=== PATIENT | male | born 1965 | race Caucasian/White ===

== ENCOUNTER 2016-11-19 02:40 | Emergency (ER) | payer OTHER, MEDICARE ==
[~2016-11-19 02:40] MED LIST: ALPRAZOLAM2 MG PO; CO-Q-10 100 MG-1 SGL PO; DOLOPHINE10 MG PO; MULTIVITAMIN1 TAB PO; OXYCODONE5 MG PO; VITAB121000 PO
[2016-11-19 03:02] VITALS: BP 149/76
--- NOTE | 2016-11-19 03:39 | ED UPPER/LOWER EXTREMITY COMPL ---
History of Present Illness General Chief Complaint: Lower Extremity Problems Stated Complaint: "PER PT RT FEMUR INFECTION?" Source: patient, old records Exam Limitations: no limitations Vital Signs & Intake/Output Vital Signs & Intake/Output Vital Signs Date Time Temp Pulse Resp B/P B/P Pulse O2 O2 Flow FiO2 Mean Ox Delivery Rate 11/19 0302 98.9 85 20 149/76 96 Allergies Coded Allergies: NO KNOWN ALLERGIES (07/01/15) Reconcile Medications Alprazolam 2 MG TAB 1 TAB PO TID ANXIETY (Reported) Coenzyme Q10/Vitamin E (Co-Q-10 100 MG-1 Iu) (Unknown Strength) SGL (Unknown Dose) PO DAILY SUPPLEMENT (Reported) Cyanocobalamin (Vitamin B-12) (Unknown Strength) TAB (Unknown Dose) PO DAILY SUPPLEMENT (Reported) Methadone Hydrochloride (Dolophine) 10 MG TAB 40 MG PO DAILY PAIN (Reported) Multivitamin (Multiple Vitamins) 1 TAB TAB 1 TAB PO DAILY SUPPLEMENT ( Reported) Oxycodone Hydrochloride (Oxycodone) 5 MG TAB 40 MG PO DAILY PAIN (Reported) Triage Note: PER PT TOLD BY YISSEL HAS A DISPLACED RT FEMUR X 10 DAYS, NOW FEEL LIKE ITS INFECTED DRINKING ALOT OF WATER Triage Nurses Notes Reviewed? yes Onset: Gradual Duration: week(s):, constant, continues in ED, getting worse Severity: severe Method of Injury: no recent trauma HPI: Patient presents for evaluation of right femur discomfort. Patient states that he is experiences discomfort for a month now. He recently had a right femur x- ray that showed no displacement" of the femur. He is status post right knee replacement about 5 years ago. He states that from time to time he feels warm and thinks he may have even had a tactile fever. In addition he has redness from his leg traveling up his trunk up into his neck. He has an appointment with an renewals specialist on November 21 but felt unable to wait until then. Past History Travel History Traveled to [place] past 21 day No Medical History Any Pertinent Medical History? see below for history Neurological: NONE EENT: NONE Cardiovascular: NONE Respiratory: NONE Gastrointestinal: NONE Hepatic: NONE Renal: NONE Musculoskeletal: CHRONIC BACK PAIN Psychiatric: anxiety Endocrine: NONE Blood Disorders: NONE Surgical History Surgical History: knee replacement (BILATERAL) Psychosocial History What is your primary language Faroese Tobacco Use: Never used Family History Hx Contributory? No Review of Systems Review of Systems Constitutional: Reports: no symptoms. EENTM: Reports: no symptoms. Respiratory: Reports: no symptoms. Cardiovascular: Reports: no symptoms. Gastrointestinal/Abdominal: Reports: no symptoms. Genitourinary: Reports: no symptoms. Musculoskeletal: Reports: see HPI. Skin: Reports: no symptoms. Neurological/Psychological: Reports: no symptoms. Hematologic/Endocrine: Reports: no symptoms. Immunological: Reports: no symptoms. All Other Systems: Reviewed and Negative Physical Exam Physical Exam General Appearance: see below Comments: Gen.: Well-nourished, well-developed, no acute respiratory distress. Head: Normocephalic, atraumatic. Eyes: Normal inspection bilaterally Ears: Normal inspection bilaterally Nose: Normal inspection, nasal cannula in place Throat/mouth : Moist mucosa Neck: Supple, full range of motion, no goiter Heart: Regular rate and rhythm Lungs: Quiet respirations Back: Normal range of motion Extremities: Right lower extremity: No erythema or warmth or soft tissue swelling, well-healed right knee surgical scar, right lower extremity is neurovascularly intact distally. Neurologic: Cranial nerves grossly intact, speech is clear Skin: warm and dry Psychiatric: Calm, cooperative, no apparent delusions or hallucinations Progress Differential Diagnosis: dislocation, fracture, sprain Plan of Care: Orders Procedure Date/time Status [facility] SED RATE 11/19 033 Complete CBC WITHOUT DIFFERENTIAL 11/19 033 Complete Laboratory Tests 11/19/16 0340: CBC w Diff NO MAN DIFF REQ, RBC 4.53 L, MCV 93.4, MCH 31.7 H, RDW 13.3, MPV 8.5, Gran % 68.5, Lymphocytes % 24.6, Monocytes % 6.4, Eosinophils % 0.1, Basophils % 0.4, Absolute Granulocytes 4.6, Absolute Lymphocytes 1.6, Absolute Monocytes 0.4, Absolute Eosinophils 0, Absolute Basophils 0, PUBS MCHC 33.9, ESR Westergren 10 Radiology Impression: prior right femur x-ray reviewed, the impression is as follows: IMPRESSION: Moderately severe degenerative changes of the right hip with lateral subluxation. No evidence of acute fracture. Departure Departure Disposition: HOME OR SELF CARE Condition: Stable Clinical Impression Primary Impression: Arthritis of right hip Referrals: NAVARRO LICONA APRN (PCP/Family) Additional Instructions: Follow-up with your renewals specialist as scheduled November 21. Diclofenac as prescribed for pain. Decrease activity until you see the orthopedic doctor in follow-up. Notify your primary care doctor of this emergency department visit and treatment plan. Return if any concerns or sudden worsening. Thank you for choosing the [facility] Emergency Department for your care. It was a pleasure to serve you today. Julio Woods M.D. [facility] Departure Forms: Customer Survey General Discharge Information Prescriptions: Current Visit Scripts Diclofenac Sodium 1 TAB PO BID PRN PAIN #14 TAB
[2016-11-19 03:48] LABS: ABSOLUTE BASOPHIL COUNT 0 /CUMM (0.0-0.2); ABSOLUTE EOSINOPHIL COUNT 0 /CUMM (0.0-0.7); ABSOLUTE GRANULOCYTE CT 4.6 /CUMM (1.4-6.5); ABSOLUTE LYMPH COUNT 1.6 /CUMM (1.2-3.4); ABSOLUTE MONOCYTE COUNT 0.4 /CUMM (0.10-0.60); BASOPHIL % 0.4 % (0.0-2.0); EOSINOPHIL % 0.1 % (0-5); GRANULOCYTE % 68.5 % (42.2-75.2); HEMATOCRIT 42.3 % (42-52); MEAN CORPUSCULAR HGB 31.7 PG (27.0-31.0); MEAN CORPUSCULAR HGB CONC 33.9 G/DL (33.0-37.0); MEAN CORPUSCULAR VOLUME 93.4 FL (80.0-94.0); MEAN PLATELET VOLUME 8.5 FL (7.4-10.4); PLATELET COUNT 182 /CUMM (130-400); RBC DISTRIBUTION WIDTH 13.3 % (11.5-14.5); RED BLOOD CELL CT 4.53 /CUMM (4.70-6.10); WHITE BLOOD CELL COUNT 6.7 /CUMM (4.8-10.8)
[2016-11-19] MEDS ORDERED: DICLOFENAC SODI75 M2 PO (04:59)
== END 2016-11-19 05:09 ==
LOC: ERH 02:40
PROVIDERS: Emergency Medicine
DX: M16.11 Unilateral primary osteoarthritis, right hip (principal)

== ENCOUNTER 2017-06-28 03:45 | Inpatient (IN) | payer OTHER, MEDICARE ==
[~2017-06-28] VITALS: Ht 172.7 cm; Wt 117.0 kg
[~2017-06-28 03:45] MED LIST changes: +ALPRAZOLAM2 M2 PO; -ALPRAZOLAM2 MG PO; +CLONAZEPAM2 M2 PO; +DICLOFENAC SODI75 M2 PO; +MULTIVITAMINS1 EAC9 PO; +VITAMIN D1000 UNIT PO
--- NOTE | 2017-06-28 11:55 | Admission Core Measures ---
Acute Coronary Syndrome (CM) ACS Core Measures Acute Coronary Syndrome Diagnosis No Congestive Heart Failure (NEW) CHF Core Measures Congestive Heart Failure Diagnosis No Cerebrovascular Accident (NEW) CVA Core Measures CVA/TIA Diagnosis No Venous Thromboembolism VTE Core Ravindra (View Protocol) VTE Risk Factors Surgery No Mechanical VTE Prophylaxis d/t N/A MechProphylax Ordered No VTE Pharm Prophylaxis d/t NA PharmProphylax ordered Problem List As ranked by this Provider includes Assessment & Plan 1. Unilateral primary osteoarthritis, right hip HOME MEDS Home Med List Alprazolam 2 MG TABLET 1 TAB PO BID ANXIETY (Reported) Cholecalciferol (Vitamin D3) (Vitamin D) (Unknown Strength) TABLET (Unknown Dose) PO DAILY SUPPLEMENT (Reported) Multiple Vitamin (Multivitamins) 1 EACH TABLET 1 TAB PO DAILY SUPPLEMENT ( Reported)
--- NOTE | 2017-06-28 12:02 | Surgical Discharge Summary ---
Visit Information Visit Dates Admission Date: 06/28/17 Discharge Date: 07/01/17 History of Present Illness Chief Complaint: RIGHT HIP PAIN Medical History Neurological: NONE EENT: NONE Cardiovascular: NONE Respiratory: NONE Gastrointestinal: NONE Hepatic: NONE Renal: NONE Musculoskeletal: CHRONIC BACK PAIN Psychiatric: anxiety Endocrine: NONE Blood Disorders: NONE Isolation History: Standard Surgical History Pertinent Surgical History: hip replacement, knee replacement (BILATERAL) Psychosocial History Who Do You Live With? Family What is Your Primary Language? Ivorian Review of Systems: see H&P Hospital Course Course Attending Physician: Morris Leahy MD Primary Care Physician: Oliver KELLY,[facility] Course: Patient was admitted to the hospital for an elective total joint replacement. Procedure was tolerated well and patient was transferred to a general surgical floor. Diet was advanced and tolerated. Physical therapy performed evaluation and treatment. At time of hospital discharge, vital signs were stable, neurovascular status was intact, and pain was controlled with the use of oral pain medications. Allergies: Coded Allergies: No Known Allergies (06/16/17) Significant Procedures: 06/28/17: right total hip arthroplasty Disposition Summary Disposition Principal Diagnosis: primary osteoarthritis right hip Additional Diagnosis: same, sp right total hip arthroplasty Discharge Disposition: home health services Discharge Instructions General Discharge Information Code Status: Full Code Patient's Diet: regular Patient's Activity: WBAT Follow-Up Instructions/Appts: call to be seen in office 2 weeks after surgery Medications at Discharge Discharge Medications: Continue taking these medications: Alprazolam (Alprazolam) 2 MG TABLET 1 Tablet ORAL TWICE DAILY Cholecalciferol (Vitamin D3) (Vitamin D) (Unknown Strength) TABLET Unknown Dose ORAL DAILY Multiple Vitamin (Multivitamins) 1 EACH TABLET 1 Tablet ORAL DAILY Start taking the following new medications: Apixaban (Eliquis) 2.5 MG TABLET 1 Tablet ORAL TWICE DAILY Qty = 60 No Refills Docusate Sodium (Docusate Sodium) 100 MG CAPSULE 1 Tablet ORAL TWICE DAILY Qty = 30 Refills = 1 Polyethylene Glycol 3350 (Miralax) 17 GRAM/DOSE POWDER 1 Packet ORAL DAILY NEEDED as needed for NO BM IN TWO DAYS Qty = 10 No Refills Hydromorphone HCl (Hydromorphone HCl) 2 MG TABLET 1-2 Tablet ORAL EVERY 4 HOURS NEEDED as needed for PAIN SCALE 4-6 ( MODERATE) Qty = 36 No Refills Morphine Sulfate (Morphine Sulfate ER) 30 MG TABLET.ER 1 Tablet ORAL TWICE DAILY Qty = 12 No Refills
--- NOTE | 2017-06-28 12:06 | Patient Discharge Instructions ---
Discharge Instructions General Discharge Information You were seen/treated for: right hip pain You had these procedures: right total hip arthroplasty Watch for these problems: Increasing pain despite the use of pain medication Increasing redness, warmth or swelling Drainage of any type from incision Inability to bear weight on operative leg Persistent nausea and vomiting Fever greater than 101.5 degrees Other wound care: Please keep wound clean and dry. No ointments or lotions of any type on or near incision. Your dressing will be changed on the second day after your surgery. Daily dry dressing changes are recommended each day thereafter. Do not soak your wound- no tub baths/swimming. You may shower 48hr after surgery. Diet Recommended Diet: Regular Activity Activity Limited to: Weight bear as tolerated Additional ACTIVITY Info: use assistive devices as needed Acute Coronary Syndrome Inclusion Criteria At DC or during hospital stay patient has or had the following: ACS DIAGNOSIS No Discharge Core Measures Meds if any: Prescribed or Continued at Discharge Meds if any: NOT Prescribed or Continued at Discharge Congestive Heart Failure Inclusion Criteria At DC or during hospital stay patient has or had the following: CHF DIAGNOSIS No Discharge Core Measures Meds if any: Prescribed or Continued at Discharge Meds if any: NOT Prescribed or Continued at Discharge Cerebrovascular accident Inclusion Criteria At DC or during hospital stay patient has or had the following: CVA/TIA Diagnosis No Discharge Core Measures Meds if any: Prescribed or Continued at Discharge Meds if any: NOT Prescribed or Continued at Discharge Venous thromboembolism Inclusion Criteria VTE Diagnosis No VTE Type NONE VTE Confirmed by (Test) NONE Discharge Core Measures - Per Current guidelines, there needs to be overlap - treatment for the first 5 days of Warfarin therapy. - If discharged on Warfarin prior to 5 days of - overlap therapy, the patient will need to be - assessed for post discharge needs including - *Post discharge parental anticoagulation - *Warfarin and/or parental anticoagulation education - *Follow up date to check INR post discharge At least 5 days overlap therapy as Inpatient No Meds if any: Prescribed or Continued at Discharge Note: Overlap Therapy is Warfarin and Anticoagulant Meds if any: NOT Prescribed or Continued at Discharge
--- NOTE | 2017-06-28 13:38 | Operative Report ---
Operative/Inv Procedure Report Surgery Date: 06/28/17 Name of Procedure: Right total hip arthroplasty Pre-Operative Diagnosis: Primary osteoarthritis right hip Post-Operative Diagnosis: Same Estimated Blood Loss: scant (300) Surgeon/Senior Qa Engineer: Tosin KELLY,Morris ROWELL Anesthesia: general endotracheal tube IV Fluids: See anesthesia record Implants: Secor Accolade 2 femoral stem 127 neck angle, size 4 stem; 58 acetabular shell, 36 Elizabeth head Drains: None Specimens: Right femoral head Complications: None Condition: Stable Operative Indication: Patient's 52-year-old male with significant degenerative changes of the right hip. He is failed conservative treatment is indicated for right total hip arthroplasty. Risks and benefits of procedure discussed the patient in detail in the office. Skilled set of hands was necessary provided by physician assistant Romel Wang weighted with limb positioning retraction component assembly surgical wound and incision retraction as well as location dislocation of the hip. Operative/Procedure Note Note: Once informed consent was obtained and the correct limb was identified the patient brought to operative room placed on table supine position. After administration of general endotracheal anesthesia patient placed in a left lateral decubitus position on a pegboard. All bony prominences were padded and an axillary roll was placed. Lopez catheter had been placed. The right lower extremity was prepped and draped in usual sterile fashion. To begin the procedure standard incision for the superior approach the hip was performed through the skin and subcutaneous tissue and fat. The fascia was incised. The gluteus sherlyn fibers were split bluntly at the bipennate junction. Retractor was placed deep to the gluteus medius muscle belly. Retractors placed around the femoral neck. Piriformis tendon was identified and tagged for later repair. He was then released from its insertion on the piriformis fossa. A superior capsulotomy was then performed after a retractor been placed deep to the gluteus minimus muscle belly. Capsulotomy tissue was tagged for later repair. The hip was then dislocated by physician assistant Romel Wang. This was done by placing internal rotation and flexion of the hip. Debris was removed from the femoral neck and a femoral neck cut was made 1 finger breadth above the lesser trochanter. Femoral head was passed off as specimen. Anterior and inferior acetabular retractors were placed and the labrum was resected from the acetabulum. Raisin Separator Operator removed from acetabulum. The medial wall the acetabulum was identified and a curet was used 2*the process. We then reamed sequentially from a size 47 reamer up to a size 57 reamer. We trialed a size 58 acetabular shell. This was found to be an excellent fit. A size 58 acetabular component was opened and after the acetabulum was pulse lavaged the 58 acetabular shell was placed into the acetabulum using press-fit technique. Excellent fixation was obtained. The liner was then opened and locked into the cup. Ray-Ronak was then placed protect the polyethylene liner. The femur was then internally rotated and a retractors placed on the femoral neck and around the femoral neck. A box osteotome was then used to open the lateral femoral neck and remove any remaining lateral femoral neck. The starting reamer was then used and placed down the canal without any, patient. We then began broaching and we started with a 0 broach and broached up to a size 4 broach. The size 4 broach was left in place and a trial reduction was done with 127 neck angle and a standard neck length. Relocation was difficult so we went to a -2.5 head. We'll to relocate the hip very easily. Leg lengths are equal. The hip was stable at 90 of flexion with 30 of adduction and 30 of internal rotation. Hip was then redislocated and the components removed. The femoral canal was pulse lavaged and a size 4 127 neck angle Accolade 2 stem was opened and placed down the canal using press-fit technique. A 36 mm head -2.5 was opened and placed onto the stem. The hip was relocated and again taken through a range of motion. At this point the wound was pulse lavaged. Next the piriformis and capsule repaired back to drill holes through the greater trochanter. The fascia was then closed with a running #1 looped Maxon suture. The deep tissues closed with #1 Vicryl interrupted sutures. Subcutaneous tissues were closed with 2-0 Vicryl interrupted sutures and the skin was closed cortez. Sterile dressing was applied and patient was awakened taken recovery in stable condition.
[2017-06-28 18:00] VITALS: BP 116/84
[2017-06-28 20:00] VITALS: BP 140/78
[2017-06-28 20:03] VITALS: BP 140/78
[2017-06-28 22:00] VITALS: BP 112/70
[2017-06-28 22:45] VITALS: BP 112/70
[2017-06-28 22:51] VITALS: BP 112/70
[2017-06-29] VITALS (7 sets, daily range): BP systolic 98–136; BP diastolic 68–85
--- NOTE | 2017-06-29 00:10 | PN- Orthopedic ---
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 cp, sob, no n+v with diet Objective Vital Signs and I&Os Vital Signs Date Time Temp Pulse Resp B/P B/P Pulse O2 O2 Flow FiO2 Mean Ox Delivery Rate 06/281 98.0 88 20 112/70 95 Room Air 06/28 2002 97.6 93 20 140/78 95 06/28 1800 97.9 74 16 116/84 06/28 1800 97.9 74 16 11684 97 Room Air Intake & Output 06/29 0000 06/28 1600 06/28 0806/28 0000 06/27 1600 Intake Total Output Total 700 Balance -700 Output, Urine 700 Patient 258 lb Weight Weight Reported by Patient Measurement Method Physical Exam: cv: rrr lungs: clear abd: soft, +bs ext: abductor pillowin place thigh soft, drsg dry distal cms intact bilat no shortening or rotation paris with clear urine Assessment/Plan Assessment/Plan s/p right radha with poor pain control with dilaudid 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
--- NOTE | 2017-06-29 07:51 | PN- Orthopedic ---
Subjective Subjective: Co pain overnight, meds adjusted with improvment. states he has chronic pain. wants paris out. no fever or illness, no flu like sx or cp. Objective Vital Signs and I&Os Vital Signs Date Time Temp Pulse Resp B/P B/P Pulse O2 O2 Flow FiO2 Mean Ox Delivery Rate 06/29 406 98.6 87 20 132/82 92 Room Air 06/29 0405 97.6 99 20 128/78 98 Room Air 06/29 0206 98.6 79 20 100/68 94 Room Air 06/29 0023 98.1 85 20 98/70 94 Room Air 06/28 2251 98.0 88 20 112/70 95 Room Air 06/28 2245 98.0 88 20 112/70 06/28 2200 98.0 88 20 112/70 06/28 2002 97.6 93 20 140/78 95 / 2000 97.6 93 20 140/78 06/28 1800 97.9 74 16 116/84 06/28 1800 97.9 74 16 116/84 97 Room Air Intake & Output 06/29 0700 06/29 0000 06/28 1600 06/28 0806/28 0000 06/27 1600 Intake Total 600 Output Total 700 Balance -100 Intake, Oral 600 Output, Urine 700 Patient 258 lb Weight Weight Reported by Patient Measurement Method Physical Exam: wdwn, aox3, nad no resp distress. LLE- abd pillow in place dressing cdi minimal hip/thigh swelling nvi distally, no calf pain. Current Medications: Current Medications Sig/Ana Paula Start time Last Medication Dose Route Stop Time Status Admin Acetaminophen 0 .STK-MED ONE 06/28 835 DC PO Acetaminophen 650 MG ONCE 06/28 DC PO 06/28 2358 Alprazolam 2 MG BID 06/28 2200 AC 06/28 PO 07/05 2158 2134 Apixaban 2.5 MG BID 06/29 1000 AC PO Celecoxib 200 MG DAILY 06/29 1000 AC PO Celecoxib 400 MG ONCE 06/28 0000 DC PO 06/28 2358 Dexamethasone 0 .STK-MED ONE 06/28 835 DC .ROUTE Dexamethasone 10 MG ONCE 06/28 DC IV 06/28 2358 Docusate Sodium 100 MG DAILY NEEDED PRN 06/28 1730 AC PO Fentanyl Citrate 500 MCG .STK-MED ONE 06/28 930 DC IM 02/07 0932 Gabapentin 0 .STK-MED ONE 06/28 0837 DC PO Gabapentin 300 MG ONCE 06/28 0000 DC PO 06/28 2359 Hydromorphone HCl 1 MG Q2-3 HRS NEEDED.. 06/29 0230 AC 06/29 IV 0741 Hydromorphone HCl 2 MG Q4P PRN 06/28 2245 AC 06/29 PO 0004 Hydromorphone HCl 4 MG Q4P PRN 06/28 2245 AC 06/29 PO 0206 Hydromorphone HCl 50 MG Q24H PRN 06/28 1530 DC 06/28 Sodium Chloride 45 ML IV 1745 Hydromorphone HCl 2 MG .STK-MED ONE 06/28 1244 DC IM 06/28 1245 Hydromorphone HCl 2 MG .STK-MED ONE 06/28 0931 DC IM 06/28 0932 Ketorolac 30 MG ONCE ONE 06/28 1945 DC 06/28 Tromethamine IV 06/28 194 1959 Midazolam HCl 4 MG .STK-MED ONE 06/28 0931 DC IM 06/28 0932 Morphine Sulfate 30 MG BID 06/28 2238 AC 06/28 PO 2245 Morphine Sulfate 2 MG Q3P PRN 06/28 1730 DC IV Morphine Sulfate 4 MG Q3P PRN 06/28 1730 DC IV Ondansetron HCl 4 MG Q6P PRN 06/28 1730 AC 06/28 IV 2128 Oxycodone HCl 0 .STK-MED ONE 06/28 0836 DC PO Oxycodone HCl 10 MG ONCE 06/28 0000 DC PO 06/28 2359 Oxycodone/ 2 TAB ONCE ONE 06/28 2200 DC Acetaminophen PO 06/28 2201 Oxycodone/ 1 TAB Q4P PRN 06/28 1730 DC Acetaminophen PO Oxycodone/ 2 TAB Q4P PRN 06/28 1730 DC 06/28 Acetaminophen PO 2156 Polyethylene Glycol 17 GM DAILY NEEDED PRN 06/28 1730 AC PO Scopolamine HBr 0 .STK-MED ONE 06/28 0836 DC TOP Scopolamine HBr 1 PAT ONCE 06/28 0000 DC TOP 06/28 2359 Senna/Docusate Sodium 2 TAB AT BEDTIME NEED.. 06/28 1730 AC PO Tranexamic Acid 1,000 MG .STK-MED ONE 06/28 0931 DC IV 06/28 0932 Vancomycin HCl 1,750 MG ONCE ONE 06/28 2200 DC 06/28 Dextrose/Water 250 ML IV 06/28 2359 2246 Vancomycin HCl 1,750 MG ONCE 06/28 0000 DC Sodium Chloride 250 ML IV 06/28 2359 Assessment/Plan Assessment/Plan POD#1 sp R PURVI pain control perioperative abx dc ivf dc paris PT, oob, wbat abd pillow dvt ppx w eliquis starting this am dressing change POD2 seen and examied w Dr Leahy Core Measures Venous Thromboembolism VTE Risk Factors Surgery No Mechanical VTE Prophylaxis d/t N/A MechProphylax Ordered No VTE Pharm Prophylaxis d/t NA PharmProphylax ordered
[2017-06-29 09:05] LABS: ABSOLUTE BASOPHIL COUNT 0 /CUMM (0.0-0.2); ABSOLUTE EOSINOPHIL COUNT 0 /CUMM (0.0-0.7); ABSOLUTE GRANULOCYTE CT 11.5 /CUMM (1.4-6.5); ABSOLUTE LYMPH COUNT 0.7 /CUMM (1.2-3.4); ABSOLUTE MONOCYTE COUNT 0.8 /CUMM (0.10-0.60); BASOPHIL % 0.1 % (0.0-2.0); EOSINOPHIL % 0 % (0-5); HEMATOCRIT 35.5 % (42-52); MEAN CORPUSCULAR HGB 32.8 PG (27.0-31.0); MEAN CORPUSCULAR HGB CONC 34.6 G/DL (33.0-37.0); MEAN CORPUSCULAR VOLUME 94.7 FL (80.0-94.0); MEAN PLATELET VOLUME 9.2 FL (7.4-10.4); PLATELET COUNT 178 /CUMM (130-400); RBC DISTRIBUTION WIDTH 12.2 % (11.5-14.5); RED BLOOD CELL CT 3.74 /CUMM (4.70-6.10); WHITE BLOOD CELL COUNT 13.1 /CUMM (4.8-10.8)
[2017-06-29 11:13] LABS: GRANULOCYTE % 87.8 % (42.2-75.2)
[2017-06-30 06:56] VITALS: BP 114/70
--- NOTE | 2017-06-30 07:40 | PN- Orthopedic ---
Subjective Subjective: Pain better controlled today than yesterday, still with difficulty ambulating and moderate amount of pain in the left hip radiating into the left knee, no fever no flulike illness Objective Vital Signs and I&Os Vital Signs Date Time Temp Pulse Resp B/P B/P Pulse O2 O2 Flow FiO2 Mean Ox Delivery Rate 06/30 0556 98.3 78 20 114/70 96 Room Air 06/29 2208 97.7 63 20 112/70 98 Room Air 06/29 1456 98.0 75 16 130/85 98 06/29 1152 98.3 84 20 136/82 98 Intake & Output 06/30 0000 06/29 1600 06/29 0806/29 0000 06/28 1600 Intake Total 500 800 800 600 Output Total 350 1050 700 Balance 150 800 -250 -100 Intake, Oral 500 800 800 600 Output, Urine 350 1050 700 Patient 258 lb Weight Weight Reported by Patient Measurement Method Physical Exam: Well-developed well-nourished no apparent distress. HEENT: Atraumatic, extraocular motion intact Neck: Supple, no lymphadenopathy Respiratory: No respiratory distress Extremities: No edema RIGHT lower extremity hip dressing in place, Dressing clean dry and intact with minimal bloody staining, dressing change, dry so dressing applied Incision without erythema Mild thigh swelling No signs of infection. No shortening or rotation Hip range of motion is limited and without unexpected pain Neurovascularly intact distally Bilateral calves are supple, nontender. Neuro: Alert and oriented x3 Psych: Mood affect normal, normal memory normal judgment. Skin: Warm and dry, no rash on exposed skin Results Last 48 Hours of Labs: Laboratory Tests 06/29 0755 Chemistry Sodium (137 - 145 mmol/L) 136 L Potassium (3.5 - 5.1 mmol/L) 4.6 Chloride (98 - 107 mmol/L) 104 Carbon Dioxide (22 - 30 mmol/L) 24 Anion Gap (5 - 16) 8 BUN (9 - 20 mg/dL) 16 Creatinine (0.7 - 1.2 mg/dL) 1.1 Estimated GFR (>60 ml/min) > 60 BUN/Creatinine Ratio (7 - 25 %) 14.5 Hematology CBC w Diff NO MAN DIFF REQ WBC (4.8 - 10.8 /CUMM) 13.1 H RBC (4.70 - 6.10 /CUMM) 3.74 L Hgb (14.0 - 18.0 G/DL) 12.3 L Hct (42 - 52 %) 35.5 L MCV (80.0 - 94.0 FL) 94.7 H MCH (27.0 - 31.0 PG) 32.8 H MCHC (33.0 - 37.0 G/DL) 34.6 RDW (11.5 - 14.5 %) 12.2 Plt Count (130 - 400 /CUMM) 178 MPV (7.4 - 10.4 FL) 9.2 Gran % (42.2 - 75.2 %) 87.8 H Lymphocytes % (20.5 - 51.1 %) 5.7 L Monocytes % (1.7 - 9.3 %) 6.4 Eosinophils % (0 - 5 %) 0 Basophils % (0.0 - 2.0 %) 0.1 Absolute Granulocytes (1.4 - 6.5 /CUMM) 11.5 H Absolute Lymphocytes (1.2 - 3.4 /CUMM) 0.7 L Absolute Monocytes (0.10 - 0.60 /CUMM) 0.8 H Absolute Eosinophils (0.0 - 0.7 /CUMM) 0 Absolute Basophils (0.0 - 0.2 /CUMM) 0 Assessment/Plan Assessment/Plan Postop day #2 status post right total hip arthroplasty Pain medication as needed. Out of bed Physical therapy, weightbearing as tolerated Regular diet abduction pillow Eliquis for DVT prophylaxis ALPS for DVT prophylaxis Regular home meds Daily dressing changes, done today Possible discharge home with [facility]NA services as early as this afternoon, we will see how he does with physical therapy and pain control Core Measures Venous Thromboembolism VTE Risk Factors Surgery No Mechanical VTE Prophylaxis d/t N/A MechProphylax Ordered No VTE Pharm Prophylaxis d/t NA PharmProphylax ordered
[2017-06-30 14:08] VITALS: BP 110/70
[2017-06-30 22:05] VITALS: BP 120/70
[2017-07-01 06:30] VITALS: BP 120/64
[2017-07-01] MEDS ORDERED: ELIQUIS2.5 M1 PO (07:52)
[2017-07-01] MEDS ORDERED: MIRALAX119 GM PO (07:54)
[2017-07-01] MEDS ORDERED: DOCUSATE SODIU100 M3 PO (07:54)
[2017-07-01] MEDS ORDERED: MORPHINE SULFAT30 M3 PO (07:57)
[2017-07-01] MEDS ORDERED: HYDROMORPHONE HC2 M1 PO (07:57)
--- NOTE | 2017-07-01 08:03 | PN- Orthopedic ---
See Addendum Subjective Subjective: pod#3 s/p right radha pain control much improved today doing well with pt tolerating diet +bm Objective Vital Signs and I&Os Vital Signs Date Time Temp Pulse Resp B/P B/P Pulse O2 O2 Flow FiO2 Mean Ox Delivery Rate 07/01 0630 98.1 74 18 120/64 99 Room Air / 2205 97.9 67 18 120/70 95 06/30 1408 98.1 68 16 110/70 96 Intake & Output 07/01 1600 07/01 0807/01 0000 06/30 1600 06/30 0700 06/30 0000 Intake Total 400 300 560 600 500 Output Total 350 Balance 400 300 560 600 150 Intake, IV 20 Intake, Oral 400 280 560 600 500 Number 1 Bowel Movements Output, Urine 350 Physical Exam: cv: rrr lungs: clear abd: soft, +bs ext: wound c/d/i no calf tenderness bilat distal cms intact Assessment/Plan Assessment/Plan ortho stable plan d/c later today f/u dr jhaveri Core Measures Venous Thromboembolism VTE Risk Factors Surgery No Mechanical VTE Prophylaxis d/t N/A MechProphylax Ordered No VTE Pharm Prophylaxis d/t NA PharmProphylax ordered
== END 2017-07-01 10:40 | disposition home health service (06) | DRG 470 ==
LOC: SDA 03:45 → ENRESERV 14:22 → ENTRNSPT 16:30 → EDTRNSPTSTS 17:02 → 2NA 17:14 → CMPTRNSPT 17:22 → ENPENDDIS 07-01 08:00 → ENTRNSPT 07-01 10:21 → EDTRNSPT 07-01 10:31 → EDTRNSPTSTS 07-01 10:31 → 2NA 07-01 10:40 → CMPTRNSPT 07-01 10:49
PROVIDERS: Physician Assistant Surgical
PROC: 0SR904A Replacement of Right Hip Joint with Ceramic on Polyethylene Synthetic Substitute, Uncemented, Open Approach (ICD-10-PCS; principal; 2017-06-28)
DX: M16.11 Unilateral primary osteoarthritis, right hip (principal); Z96.642 Presence of left artificial hip joint; F41.9 Anxiety disorder, unspecified; M25.751 Osteophyte, right hip; Z96.653 Presence of artificial knee joint, bilateral; G89.29 Other chronic pain; M54.9 Dorsalgia, unspecified
CPT/HCPCS: 2NAP; 36415; 82436; 87086; 97110-GO; 97116-GO; 97161-GP; 97530-GO; C9399; J1100; J1170; J1885; J2405; J3370; J7040; J7060